=== PATIENT | female | born 1955 | race Caucasian/White ===

== ENCOUNTER 2019-10-20 14:04 | Inpatient (IN) | payer MEDICARE, MEDICAID ==
[~2019-10-20] VITALS: Ht 152.4 cm; Wt 122.5 kg
[~2019-10-20 14:04] MED LIST: ABILIFY10 MG PO; ACETAMINOPHEN-1 EAC1 PO; ACETAMINOPHEN325 M1 PO; ACTOS 45 MG45 M1 PO; AMBIEN CR 6.26.25 MG PO; ASPIRIN EC81 M1 PO; AVELOX 400 MG400 MG PO; CIPROFLOXACIN500 M1 PO; CLEOCIN HCL150 MG PO; CLONAZEPAM 0.50.5 M1 PO; CLONAZEPAM 1 MG1 M1 NG; COZAAR 25 MG TA25 M1 PO; DIOVAN HCT 1601 EACH PO; DIOVAN HCT 80-1 EACH PO; DOXYCYCLINE 10100 M1 PO; FLEXERIL PO; FLUCONAZOLE 10100 MG PO; FUROSEMIDE 40 M40 MG PO; GLUCOPHAGE1000 MG PO; GLUCOPHAGE500 MG PO; GLYBURIDE 5 MG T5 M1 PO; LEVAQUIN 750 M750 MG PO; LORTABELXR PO; METFORMIN 500500 MG PO; MUCINEX600 MG PO; NORCO 5-325 TA1 EACH PO; NORCO 7.5-3251 EACH PO; PREDNISONE 20 M20 M1 PO; SINGULAIR 10 MG10 M1 PO; SPIRIVA INH; SYMBICORT160 MCG/4. INH; SYMBICORT80 MCG/4.1 INH; WOMEN'S DAILY1 EAC3 PO; XOPENEX HF1 UDINHALE IH; XOPENEX HFA15 GM IH; XOPENEX1.25 MG/3 IH; ZPAK PO
[2019-10-20 14:23] VITALS: BP 151/106
[2019-10-20 15:03] LABS: ABSOLUTE BASOPHILS 0.1 thou/uL (0.0-0.2); ABSOLUTE EOSINOPHILS 0.2 thou/uL (0.0-0.7); ABSOLUTE LYMPHOCYTES 3.7 thou/uL (0.8-5.3); ABSOLUTE MONOCYTES 0.6 thou/uL (0.0-1.2); ABSOLUTE NEUTROPHILS 3.9 thou/uL (1.6-8.1); BASOPHILS 0.7 %; EOSINOPHILS 2.5 %; HEMATOCRIT 40.6 % (37.0-47.0); HEMOGLOBIN 14.2 gm/dL (12.0-15.0); LYMPHOCYTES 43.8 %; MCH 31.8 pg (26.0-34.0); MCHC 34.9 g/dL (28.0-37.0); MONOCYTES 7.4 %; MPV 8.4 fl. (7.2-11.1); NUCLEATED RBCS 0 /100WBC; PLATELET COUNT* 223 thou/uL (150-400); POLYS 45.6 %; RBC 4.46 mil/uL (4.20-5.00); RDW-CV 13.7 % (10.5-14.5); WBC 8.5 thou/uL (4.0-11.0)
[2019-10-20 15:12] LABS: CALCIUM 8.8 mg/dL (8.5-10.1); CREATININE 0.7 mg/dL (0.6-1.3)
[2019-10-20] MEDS ORDERED: CLONAZEPAM 0.50.5 M1 PO (15:14)
[2019-10-20] MEDS ORDERED: NEURONTIN300 MG PO (15:15)
[2019-10-20] MEDS ORDERED: VITAMIN D31250 MCG PO (15:16)
[2019-10-20] MEDS ORDERED: PROAIR HFA8.5 GM INH (15:17)
[2019-10-20] MEDS ORDERED: VALACYCLOVIR1000 MG PO (15:17)
[2019-10-20] MEDS ORDERED: MOBIC7.5 MG PO (15:18)
[2019-10-20] MEDS ORDERED: INCRUSE ELLI62.5 MCG INH (15:18)
[2019-10-20] MEDS ORDERED: ZOLPIDEM TART6.25 MG PO (15:18)
[2019-10-20] MEDS ORDERED: TRIAMCINOLONE A15 G1 TOP (15:20)
[2019-10-20 15:23] LABS: ALBUMIN 3.6 g/dL (3.4-5.0); MAGNESIUM 1.6 mg/dL (1.8-2.4); TOTAL BILIRUBIN 0.6 mg/dL (<0.1-1.0); TOTAL PROTEIN 7.4 g/dL (6.4-8.2)
[2019-10-20 15:34] LABS: URINE BILIRUBIN NEGATIVE (Negative); URINE BLOOD TRACE (Negative); URINE CLARITY SL CLOUDY; URINE COLOR YELLOW; URINE GLUCOSE-RANDOM 1+ (Negative); URINE KETONES NEGATIVE (Negative); URINE LEUKOCYTES-REFLEX 1+ (Negative); URINE NITRITE-REFLEX NEGATIVE (Negative); URINE PROTEIN 2+ (Negative); URINE SPECIFIC GRAVITY >= 1.030 (1.005-1.030); URINE UROBILINOGEN 0.2 E.U./dl (0.2-1.0)
[2019-10-20 15:40] LABS: SQUAMOUS 4-10 Moderate /LPF (0-3)
[2019-10-20 15:41] LABS: URINE WBC-REFLEX >25 Many /HPF (0-5)
[2019-10-20 15:42] LABS: MUCUS >6 Heavy strn/LPF (None Seen); URINE RBC 3-10 Few /HPF (0-2)
[2019-10-20 15:43] LABS: CASTS None Seen /LPF (None Seen); CRYSTALS None Seen /LPF (None Seen); WBC CLUMPS Moderate (None Seen); YEAST-REFLEX Present (None Seen)
[2019-10-20 17:36] VITALS: BP 122/70
[2019-10-20 19:02] VITALS: BP 150/79
--- NOTE | 2019-10-20 19:37 | NUR ---
Assumed care of the pt @ 1730. Pt admitted to rm 227 from the ed. Transported to the unit via cart. Pt ambulates with a rolling walker with sba. Pt on contact precautions for shingles. Shingle rash is under the rt breast around to mid back. C/o pain in that area and generalized pain. Iv pain meds given. Skin intact no open areas. Continent of B/B. Using BSC. Pt has all belongings at the bed side. Oriented to the pt room and unit routines. Pt is on 3 liters of O2 per nasal canula. Lungs are clear diminished. No cough. Meds to be sent to pharmacy. Tolerating a diabetic diet. BS in low 100s. Pt is resting quietly at this time with the call light in reach. will continue to monitor.
[2019-10-20 20:00] VITALS: BP 158/93
[2019-10-21] VITALS: BP 128/72
[2019-10-21 04:00] VITALS: BP 183/88
[2019-10-21 04:48] LABS: ABSOLUTE EOSINOPHILS 0.2 thou/uL (0.0-0.7); ABSOLUTE LYMPHOCYTES 4.5 thou/uL (0.8-5.3); ABSOLUTE MONOCYTES 0.8 thou/uL (0.0-1.2); ABSOLUTE NEUTROPHILS 3.3 thou/uL (1.6-8.1); BASOPHILS 0.5 %; EOSINOPHILS 2.7 %; HEMATOCRIT 38.8 % (37.0-47.0); HEMOGLOBIN 13.3 gm/dL (12.0-15.0); LYMPHOCYTES 50.3 %; MCH 31.5 pg (26.0-34.0); MCHC 34.2 g/dL (28.0-37.0); MCV 92.3 fL (80.0-100.0); MONOCYTES 9.1 %; MPV 8.5 fl. (7.2-11.1); NUCLEATED RBCS 0 /100WBC; PLATELET COUNT* 206 thou/uL (150-400); POLYS 37.4 %; RBC 4.21 mil/uL (4.20-5.00); RDW-CV 13.6 % (10.5-14.5); WBC 8.9 thou/uL (4.0-11.0)
[2019-10-21 05:33] LABS: CALCIUM 8.5 mg/dL (8.5-10.1); CREATININE 0.6 mg/dL (0.6-1.3); POTASSIUM 3.8 mmol/L (3.5-5.1)
--- NOTE | 2019-10-21 07:46 | NUR ---
Shift uneventful. Pt is aox4, running SR w/ PVCs on telemetry, respirations are even and unlabored on 3L NC. Pt is medically stable at this time.
[2019-10-21 08:00] VITALS: BP 110/63
--- NOTE | 2019-10-21 09:41 | EKG ---
[place] [address] ELECTROCARDIOGRAM REPORT Name: ROBB BIRD Room: [place] [address] ADM IN [facility].#: [id number] Admission: 10/20/19 Attend Phys: Francisco Jasso, Discharge: Date of : 57 Date of Service: 10/20/19 1440 Report #: [id number] THIS REPORT FOR: //name// [facility] ED Test Date: 2019-10-20 Test Time: 14:40:12 Pat Name: ROBB BIRD Department: Room: [facility] Gender: F Safety Tech: TRAY : 1955 Requested By: Tod Espinosa Order Number: [id number] MD: Sherman Serra Measurements Intervals [place] Rate: 93 P: 61 TN: 148 QRS: -78 QRSD: 135 T: 71 QT: 390 QTc: 486 Interpretive Statements Sinus rhythm RBBB and LAFB No previous ECG available for comparison Electronically Signed On 10-21-2019 9:40:18 CDT by Sherman Serra [email or web address] <ELECTRONICALLY SIGNED> By: Sherman Serra MD, FAC 10/21/19 0940 1440 1440 Sherman Serra MD, [facility] /EPI
[2019-10-21 12:27] VITALS: BP 178/80
--- NOTE | 2019-10-21 16:07 | NUR ---
Pt is A&O. Resides at home alone. Independent. Pt has 2 walkers and a cane that she uses for mobility. Pt wears home o2 continuous, 3L at rest and 6L with activity, Pt also has a cpap, both provided through [employer]. Hx of HH. No hx of SNF. Pt wants HH at de, to arrange. Per , anticipate dc in 1-2 days. Following.
[2019-10-21 16:57] VITALS: BP 115/64
--- NOTE | 2019-10-21 18:30 | NUR ---
ASSUMED PT CARE AT 0700, VSS, REMAINS ON 3LPM VIA NC, LOAN SUPERVISOR TRACING SINUS RHYTHM, CONT TO C/O PAIN FROM SHINGLES, REMAINS ON CONTACT ISOLATION. UP WITH STANDBY ASSIST TO BEDSIDE COMMODE FOR ASSSISTANCE WITH O2 TUBING, STEADY ON FEET, HOURLY ROUNDING COMPLETED.
[2019-10-21 20:00] VITALS: BP 148/70
[2019-10-22] VITALS (7 sets, daily range): BP systolic 111–156; BP diastolic 40–78
--- NOTE | 2019-10-22 07:41 | NUR ---
Shift uneventful. Pt is aox4, running SR on telemetry, respirations are even and unlabored on room air. Pt is medically stable at this time.
--- NOTE | 2019-10-22 08:38 | NUR ---
Faxed initial referral to [facility]
--- NOTE | 2019-10-22 08:59 | CON ---
[address] [address] CONSULTATION Name: ROBB BIRD Room: [place] [address] ADM IN [facility].R.#: [id number] Admission: 10/20/19 Attend Phys: Francisco Jasso MD Discharge: Date of : 57 Report #: [id number] THIS REPORT FOR: //name// cc: DALE Chao family physician/PCP DALE Chao family physician/PCP ~ THIS REPORT FOR: //name// CC: Francisco Jasso [facility] physician/PCP DATE OF SERVICE: 10/21/2019 INFECTIOUS DISEASE CONSULTATION ATTENDING PHYSICIAN: Dr. Jasso. REASON FOR EVALUATION: Right-sided thoracic dermatomal shingles with perhaps pneumonitis, complicated urinary tract infection. HISTORY OF PRESENT ILLNESS: Chart reviewed, the patient examined. This is a 64-year-old fairly extensive medical history, has diabetes mellitus, COPD, has a longstanding lung mass, it apparently has been biopsied twice. There is suspicion of some sort of a neoplasm, although that has not apparently been confirmed. Remainder of serial x-rays showed perhaps increase in size and followed as an outpatient. She had developed a band-like pattern of rash with heat rash on the right mid thorax, became quite painful. She was concerned about gallbladder issue or perhaps myocardial infarction. She was evaluated and was noted to have the classic zosteriform rash. She was initiated on therapy for both symptomatic relief as well as valacyclovir. Continued to cause significant amount of pain and discomfort. She underwent evaluation including imaging, which noted the lung mass. A CT was done, which raised question of carlota-mass infiltrate. Also noted may well have complicated urinary tract infection as well with marked pyuria. She believes she had some fevers within the last couple of weeks, had been mindful of onset of symptoms, perhaps coronavirus. She was taking her temperature. She described low-grade temperature elevations. She did have a period of nausea and anorexia that seems to have improved to this point. She is requiring supplemental oxygen per nasal cannula. Has a cough, somewhat productive at times. ALLERGIES: LISTED TO PENICILLIN, SULFA, STATINS, PREDNISONE, ALPRAZOLAM. CURRENT MEDICATIONS: Include aspirin, cetylpyridinium, hydrocodone, valacyclovir 1 gram b.i.d., gabapentin, glyburide, montelukast, enoxaparin, pantoprazole. PAST MEDICAL HISTORY: Included diabetes mellitus type 2, history of COPD, [place] [address] CONSULTATION Name: ROBB BIRD Room: [address] IN [facility]#: [id number] Admission: 10/20/19 Attend Phys: Francisco Jasso MD Discharge: Date of : 57 Report #: [id number] lung mass, longstanding hypertension, hyperlipidemia, PTSD, depression, previous hysterectomy, previous colon resection and diverticulitis. SOCIAL HISTORY: Former smoker. No ethanol. No illicit drug use. FAMILY HISTORY: Noncontributory. REVIEW OF SYSTEMS: Otherwise, unremarkable 10-point review of system with the exception of the above. Has had some weight loss. PHYSICAL EXAMINATION: GENERAL: She is alert, cooperative. She appears somewhat chronically ill. She measures moderately undernourished. She is lucid. She has kxwb-qc-gsfhatog distress. VITAL SIGNS: Temperature 98.1, pulse 87, respirations 21, blood pressure 183/88. SKIN: Warm, dry, no rashes. HEENT: Normocephalic. Extraocular muscles intact. NECK: Supple. LUNGS: Few scattered coarse breath sounds. HEART: Regular. I do not appreciate murmur. CHEST: She does have a dermatomal eruption noted along the right hemithorax that extends down to the breast. There is no evidence of vesicles at this point. ABDOMEN: Obese, soft, nontender. GENITOURINARY: Deferred. RECTAL: Deferred. LABORATORY DATA: Electrolytes: Sodium 139, potassium 3.8, chloride 105, bicarbonate is 34, anion gap of 0. BUN and creatinine 14 and 0.6, glucose of 159. CBC: White count of 8.9, H and H 13.3, 38.8, platelets of 206. CTA of the chest showed no evidence of PE, large right upper lobe mass-like consolidative process about 10 cm, additional surrounding upper lobe and lower lobe nonconsolidative infiltrate. Urinalysis greater than 25 white cells, 10-30 bacteria. Electrolytes: Sodium 139, potassium 4.0, chloride 102, bicarbonate is 29, anion gap of 8 on admission. BUN and creatinine 13 and 0.9. LFTs unremarkable. Albumin of 3.6, total protein 7.4. Troponin less than 0.06 serially. CBC: White count of 8.5, H and H 14.2, 40.6, platelets of 223. Chest x-ray described above. Right upper lobe mass 8.7 x 5.1 cm, unchanged from June of this year. ASSESSMENT AND PLAN: Varicella zoster. The patient may well be immune compromised given the possibility of underlying malignancy, although this would be apparently really slow growing, it has been number of years. Does have history of smoking, certainly can exclude a postobstructive-type process with pneumonitis, also may well have a complicated urinary tract infection. I think [address] [place] [address] CONSULTATION Name: ROBB BIRD Room: [address] IN M.R.#: [id number] Admission: 10/20/19 Attend Phys: Francisco Jasso MD Discharge: Date of : 57 Report #: [id number] all these factors would favor initiation of antibacterial therapy. We will await the pending cultures of the urine, see how she does clinically, symptomatic pain control as possible. Continue the antiviral. Whether they have a significant role at this point is not entirely clear as she may be a candidate for immunization when this is resolved. <ELECTRONICALLY SIGNED> By: Edmundo Moss MD 10/22/19 0859 0948 [id number] Moss MD /nt
--- NOTE | 2019-10-22 14:49 | NUR ---
ASSUMED CARE OF PATIENT THIS AM AT 0730. PATIENT C/O SHINGLE PAIN. PATIENT MEDICATED FOR PAIN X 2. FSBS MONITORED. PATIENT CONTINUES IN CONTACT ISOLATION. TELE SHOWS SR WITH A BBB. NO FALL OR INJURY.
[2019-10-23] VITALS (7 sets, daily range): BP systolic 98–135; BP diastolic 60–74
--- NOTE | 2019-10-23 02:00 | NUR ---
PATIENT REPORTS LIGHT PULL FOR OVER THE BED LIGHT WAS BROKEN LATE AFTERNOON AND WORK ORDER PLACED. THIS HAS NOT BEEN REPAIRED BY HS AND UNABLE TO TURN OFF THIS LIGHT. PATIENT OFFERED ROOM CHANGE AND THIS WAS DECLINED FOR NOW.
--- NOTE | 2019-10-23 04:38 | NUR ---
PATIENT HAS REMAINED ALERT AND ORIENTED X 4 THROUGHOUT THE SHIFT AND RESTING QUIETLY ON HOURLY ROUNDS. UP INDEPENDENTLY TO THE BSC. MEDICATED FOR SHINGLE PAIN X 1 THIS SHIFT TO GOOD EFFECT. ANTIBIOTICS PER ORDER. VITAL SIGNS STABLE/AFEBRILE. CONTACT ISOLATION FOR SHINGLES. CONTINUE TO MONITOR.
[2019-10-23 05:58] LABS: ABSOLUTE BASOPHILS 0.1 thou/uL (0.0-0.2); ABSOLUTE EOSINOPHILS 0.3 thou/uL (0.0-0.7); ABSOLUTE LYMPHOCYTES 3.7 thou/uL (0.8-5.3); ABSOLUTE MONOCYTES 0.8 thou/uL (0.0-1.2); ABSOLUTE NEUTROPHILS 3.4 thou/uL (1.6-8.1); BASOPHILS 0.8 %; EOSINOPHILS 3.8 %; HEMATOCRIT 39.4 % (37.0-47.0); HEMOGLOBIN 13.5 gm/dL (12.0-15.0); LYMPHOCYTES 44.8 %; MCH 31.7 pg (26.0-34.0); MCHC 34.1 g/dL (28.0-37.0); MCV 92.9 fL (80.0-100.0); MONOCYTES 9.7 %; MPV 8.6 fl. (7.2-11.1); NUCLEATED RBCS 0 /100WBC; PLATELET COUNT* 210 thou/uL (150-400); POLYS 40.9 %; RBC 4.25 mil/uL (4.20-5.00); RDW-CV 13.8 % (10.5-14.5); WBC 8.2 thou/uL (4.0-11.0)
[2019-10-23 06:15] LABS: ALBUMIN 3.3 g/dL (3.4-5.0); CALCIUM 8.8 mg/dL (8.5-10.1); CREATININE 0.7 mg/dL (0.6-1.3); MAGNESIUM 2.1 mg/dL (1.8-2.4); POTASSIUM 4.1 mmol/L (3.5-5.1); TOTAL BILIRUBIN 0.3 mg/dL (<0.1-1.0); TOTAL PROTEIN 6.9 g/dL (6.4-8.2)
[2019-10-24 00:37] VITALS: BP 112/43
[2019-10-24 04:00] VITALS: BP 101/39
--- NOTE | 2019-10-24 05:32 | NUR ---
PT CARE ASSUMED AT 1930. SAT MAINTAINED IN O2. ALERT AND ORIENTED X4. C/O PAIN, MEDICATION GIVEN PER EMAR. CALL LIGHT WITHIN REACH AND BED IN LOW POSITION. HOURLY ROUNDING DONE FOR PT SAFETY.
[2019-10-24 08:00] VITALS: BP 110/64
[2019-10-24 12:11] VITALS: BP 115/59
[2019-10-24] MEDS ORDERED: TRAMADOL 50 MG50 MG PO (12:50)
[2019-10-24] MEDS ORDERED: CEFDINIR300 MG PO (12:50)
[2019-10-24] MEDS ORDERED: TRIAMCINOLONE A15 G1 TOP (12:50)
[2019-10-24 14:52] VITALS: BP 125/74
--- NOTE | 2019-10-24 15:30 | NUR ---
Pt discharging to home today, faxed HH orders to [facility]
--- NOTE | 2019-10-24 17:00 | NUR ---
PT VSS, AOX4, SR BBB HR 77, PAIN ON R TRUNK 5/10, PAIN MEDS DECLINED. HOURLY ROUNDING PERFORMED. PT. ANXIOUS TO GO HOME. DISCHARGE PAPERWORK, SCRIPTS AND CARENOTES PROVIDED. DISCHARGE INSTRUCTIONS REVIEWED WITH PT. PT VERBALIZED UNDERSTANDING. PIV D/PIERRE WITHOUT COMPLICATIONS. PT. TRANSFERRED BY WHEELCHAIR TO PERSONAL CAR BY NURSING STAFF. WALKER AND PATIENT BELONGLINGS PLACED IN CAR. PT. LEFT ON PERSONAL PORTABLE OXYGEN.
== END 2019-10-24 16:00 | disposition home health service (06) | DRG 177 ==
LOC: M.ERS 14:04 → M.2W 15:34 → M.TBA-ER 15:34 → M.2W 17:25
PROVIDERS: Emergency Medicine Emergency Medical Services; ADMIT Internal Medicine
DX: J15.6 Pneumonia due to other Gram-negative bacteria (principal); J96.20 Acute and chronic respiratory failure, unspecified whether with hypoxia or hypercapnia; N39.0 Urinary tract infection, site not specified; B02.8 Zoster with other complications; Z68.43 Body mass index [BMI] 50.0-59.9, adult; J44.0 Chronic obstructive pulmonary disease with (acute) lower respiratory infection; F41.9 Anxiety disorder, unspecified; E66.9 Obesity, unspecified; E11.9 Type 2 diabetes mellitus without complications; B02.9 Zoster without complications; E78.5 Hyperlipidemia, unspecified; F32.9 Major depressive disorder, single episode, unspecified; F43.10 Post-traumatic stress disorder, unspecified; X58.XXXA Exposure to other specified factors, initial encounter; Z88.0 Allergy status to penicillin; Z88.2 Allergy status to sulfonamides; Z88.8 Allergy status to other drugs, medicaments and biological substances; Z90.710 Acquired absence of both cervix and uterus; Z87.891 Personal history of nicotine dependence; Y93.89 Activity, other specified; Y92.89 Other specified places as the place of occurrence of the external cause; Y99.8 Other external cause status; R91.8 Other nonspecific abnormal finding of lung field; Z79.899 Other long term (current) drug therapy

== ENCOUNTER 2019-11-18 12:12 | Emergency (ER) | payer MEDICARE, MEDICAID ==
[~2019-11-18] VITALS: Ht 154.9 cm; Wt 124.7 kg
[~2019-11-18 12:12] MED LIST changes: +CEFDINIR300 MG PO; +INCRUSE ELLI62.5 MCG INH; +MOBIC7.5 MG PO; +NEURONTIN300 MG PO; +PROAIR HFA8.5 GM INH; +TRAMADOL 50 MG50 MG PO; +TRIAMCINOLONE A15 G1 TOP; +VALACYCLOVIR1000 MG PO; +VITAMIN D31250 MCG PO; +ZOLPIDEM TART6.25 MG PO
[2019-11-18 13:39] VITALS: BP 167/82
== END 2019-11-18 13:41 | disposition left against medical advice (07) ==
LOC: M.ERS 12:12
DX: J02.9 Acute pharyngitis, unspecified (principal); J34.89 Other specified disorders of nose and nasal sinuses; R09.81 Nasal congestion; E11.9 Type 2 diabetes mellitus without complications; J44.9 Chronic obstructive pulmonary disease, unspecified; I10 Essential (primary) hypertension; E78.5 Hyperlipidemia, unspecified; Z90.710 Acquired absence of both cervix and uterus; Z85.118 Personal history of other malignant neoplasm of bronchus and lung; Z88.2 Allergy status to sulfonamides; Z88.8 Allergy status to other drugs, medicaments and biological substances